=== PATIENT | female | born 1990 ===

== ENCOUNTER 2016-10-23 11:10 | Emergency (ER) | payer MEDICAID, OTHER ==
[2016-10-23 11:49] VITALS: BMI 31.1
[2016-10-23 13:10] LABS: SQUAMOUS EPITHIAL 5 /hpf (0-5); URINE BACTERIA RARE (<OCC); URINE BILIRUBIN NEGATIVE (NEGATIVE); URINE BLOOD NEGATIVE (NEGATIVE); URINE CLARITY CLOUDY (Clear); URINE COLOR YELLOW (YELLOW); URINE GLUCOSE (UA) NEG (Normal); URINE LEUKOCYTE ESTERASE LARGE Leu/uL (Negative); URINE NITRATE NEGATIVE (NEGATIVE); URINE PROTEIN 30 mg/dL (NEGATIVE); URINE UROBILINOGEN 0.2-1.0 mg/dL (0.2-1.0)
--- NOTE | 2016-10-23 14:45 | US ---
PROCEDURE: HISTORY: decreased movement COMPARISON: TECHNIQUE: FINDINGS: Single live intrauterine fetus with amniotic fluid index of 13.5 centimeters. Biophysical profile score of 8 out of 8. Estimated gestational age by LMP is 35 weeks and 4 days. Placenta anterior. IMPRESSION: As above.
== END 2016-10-23 16:45 | disposition home or self-care (01) ==
LOC: H.EROB2 11:10 → H.EROB 11:24 → H.EROB2 14:09
DX: O36.8131 Decreased fetal movements, third trimester, fetus 1 (principal); O47.03 False labor before 37 completed weeks of gestation, third trimester; Z3A.35 35 weeks gestation of pregnancy; O23.43 Unspecified infection of urinary tract in pregnancy, third trimester

== ENCOUNTER 2016-11-05 02:46 | Inpatient (IN) | payer OTHER ==
[2016-11-05 03:28] VITALS: BMI 31.6
[2016-11-05] MEDS: Lactated Ringer's 1,000 ML IV SCH (03:55)
[2016-11-05 03:59] LABS: BASO % 0.1 % (0.0-2.0); EOS # 0.1 K/uL (0.0-0.7); EOS % 0.4 % (0.0-4.0); HEMOGLOBIN 12.9 g/dL (12.0-16.0); LYMPH % 14.5 % (20.0-40.0); MEAN CELL VOLUME 89.6 fl (81.0-99.0); MEAN CORPUSCULAR HGB CONC 33.4 g/dL (33.0-37.0); MEAN PLATELET VOLUME 7.8 fl (7.2-11.7); MONO # 1.1 K/uL (0.0-0.8); MONO % 8.2 % (0.0-10.0); NEUT # 10.6 K/uL (1.8-7.0); NEUT % 76.8 % (50.0-75.0); NRBC % 0.1 % (0.0-0.0); RBC 4.32 Mil/uL (3.80-5.20); WHITE BLOOD COUNT 13.8 K/uL (4.8-10.8)
[2016-11-05] MEDS ORDERED: Oxytocin 30 units/LR 500ML 30 U/500 ML BAG IV ONE (04:08)
[2016-11-05] MEDS ORDERED: Oxycodone/Acetaminophen 5/325 mg Tab PO PRN (04:40)
[2016-11-05] MEDS ORDERED: Benzocaine/Menthol SPRAY TOP PRN (04:40)
[2016-11-05] MEDS ORDERED: Oxytocin 30 units/LR 500ML 30 U/500 ML BAG IV SCH (04:40)
--- NOTE | 2016-11-05 04:48 | OBADHP ---
Datetime: 11/05/2016 04:43 Admit Comment, IP Provider: 26 yo at37+2 wks in labor Vancomycin started for GBS prophylaxis FHT reassuring H_P dictated, "[id number]" Extremities - PN: Normal Abdomen - PN: Normal FHR - Baseline A Provider: 130 Vital Signs Provider: Reviewed IP Chief Complaint: Uterine contractions NICHD Variability Prov Fetus A: Moderate 6-25bpm NICHD Accel Fetus A IP Provider: 15X15 NICHD Decel Fetus A IP Provider: None Dilatation, Provider: 6-7 Effacement, Provider: 80 Station, Provider: -2 Genitourinary Exam: Normal EGA AdmitDate IP: 37.3 IP Adm Impression: Term, intrauterine IP Admit Plan: Initiate labor protocol Datetime: 10/23/2016 11:46 Pelvic Type - PN: Adequate Back - PN: Normal Lungs - PN: Normal Heart - PN: Normal Neurologic - PN: Normal HEENT - PN: Normal General - PN: Normal Presentation-Admit: Vertex Membranes, Provider: Intact Contraction Comments Provider: no Comments, ACOG Physical Exam: SSE: profuse yellow green curdlike d/c; no blood in vagina; no blood o n glove from pelvic exam Pool Provider: Negative
--- NOTE | 2016-11-05 04:53 | OBDS ---
MATERNAL INFORMATION Provider Comments: Pt progressed to complete and pushed to deliver a viable male through thin meconium at 04:25. Apgars 9 and 9. Wt 6.89, 2975 gms. placxed on mother's abdomen. Mouth and nares bulb-suctioned. Cord clamped and cut. Placenta delivered spontaneously intact w/ a 3vc a t 04:33. No tears noted. Pt and baby tolerated the procedure well. EBL: 150mL LABOR SUMMARY EDC: 11/23/2016 00:00 LABOR INFORMATION Onset of Labor: 11/05/2016 12:15 BABY A INFORMATION Infant Delivery Date/Time: 11/05/2016 04:25 SHOULDER DYSTOCIA BABY A Delivery Date/Time: 11/05/2016 04:25
--- NOTE | 2016-11-05 05:54 | HP ---
HISTORY OF PRESENT ILLNESS: This is a 26-year-old G6, P3-0-2-3 at 37 weeks and 2 days with an EDC of 11/24/2016 by LMP, who presents with very painful contractions that started around midnight. She denies leaking of fluids. She reports vaginal spotting. Reports positive movements. The patient received her care at [facility] with Dr. Palacios. The patient has a previous child with tricuspid regurgitation. She is allergic to penicillin. PAST MEDICAL HISTORY: The patient is healthy, reports that she is lactose- intolerant. PAST SURGICAL HISTORY: None. PAST OB HISTORY: In 2005, she had spontaneous . In 2006, she had spontaneous . In June 2007, she underwent a vaginal delivery of a male weighing 6 pounds 11 ounces. In March 2013, she underwent a vaginal delivery of a male weighing 7 pounds 2 ounces and in November 2015, she underwent vaginal delivery of a male weighing 6 pounds 13 ounces. [place] HISTORY: Menarche at 13, every 28 days. The patient denies any STDs or any abnormal Pap smears. MEDICATIONS: vitamins. ALLERGIES: PENICILLIN CAUSES RASH AND SHE IS ALSO ALLERGIC TO METFORMIN. FAMILY HISTORY: Her mother has fibromyalgia, mitral valve prolapse syndrome, anxiety, and depression. SOCIAL HISTORY: The patient denies tobacco, alcohol, and illicit drug use. LABORATORY DATA: Panorama low risk and male. Varicella zoster virus IgG is positive. Blood type is O+ and antibody screen negative. Pap was negative. GC and Chlamydia negative. HIV negative. Urine culture negative. RPR nonreactive. Hepatitis B surface antigen negative. Cystic fibrosis negative. Muscular dystrophy negative. Fragile X negative. AFP was negative. On 09/08/2016 HIV was negative. One-hour Glucola was 75 and RPR was nonreactive. On 10/27/2016 and 11/03/2016, GBS was positive. PHYSICAL EXAMINATION: GENERAL: The patient appears very uncomfortable. VITAL SIGNS: Afebrile. Stable. ABDOMEN: Soft, nontender, and gravid. EXTREMITIES: Nontender. heart tracing: Baseline is in the 130s with moderate variability and positive accelerations. Tocodynamometer: Contractions about every 2-3 minutes. ASSESSMENT AND PLAN: This is a 26-year-old 9-iiap-7-0-2-3 at 37 weeks and 2 days in active labor FHT reassuring. Group B Streptococcus positive. Vancomycin started for GBS prophylaxis. Ankit Pierce MD [facility]
[2016-11-06 07:40] LABS: HEMOGLOBIN 11.7 g/dL (12.0-16.0); MEAN CELL VOLUME 90.3 fl (81.0-99.0); MEAN CORPUSCULAR HGB CONC 33.2 g/dL (33.0-37.0); RBC 3.89 Mil/uL (3.80-5.20); RED CELL DISTRIBUTION WIDTH 13.7 % (11.5-14.5); WHITE BLOOD COUNT 12.2 K/uL (4.8-10.8)
--- NOTE | 2016-11-06 07:52 | OBPPN ---
Datetime: 11/06/2016 07:47 PP Pain Prov: Within normal limits PP Abdomen/Uterus Prov: Normal PP Lochia Prov: Normal PP Extremities Prov: Normal PP Progress Prov: Normal PP Impression Prov: Normal progression PP Plan Prov: Continue present management PP Progress Note Prov: PPD 1 s/p , doing well, breast feeding Continue current management Vital Signs Provider PP: Reviewed; Within Normal Limits
--- NOTE | 2016-11-07 10:12 | OBPPN ---
Datetime: 11/07/2016 10:10 PP Pain Prov: Within normal limits PP Nausea Prov: Denies PP Flatus Prov: Yes PP BM Prov: Yes PP Breasts Prov: Normal PP Heart Prov: Normal PP Lungs Prov: Normal PP Abdomen/Uterus Prov: Normal PP Lochia Prov: Normal PP Vulva/Perineum Prov: Normal PP CVA Tenderness Prov: Normal PP Extremities Prov: Normal PP Impression Prov: Normal progression PP Plan Prov: Discharge PP Progress Note Prov: day #2 status post normal spontaneous vaginal delivery- patient re covering well Discharge home today with instructions Patient will follow up in office in 6 weeks Discussed plan with patient and all patient questions answered. IP PP Procedures: None Vital Signs Provider PP: Reviewed; Within Normal Limits
--- NOTE | 2016-11-07 10:12 | OBDCSUM ---
Datetime: 11/07/2016 10:11 Discharged to, Provider: Home Follow up at, Provider: Suzanne Disch Instr Activity: Normal activity Disch Instr Diet: Regular Discharge Instructions, Provider: Routine instructions given Discharge Diagnosis, Provider: Term Delivered Discharge Time: 11/07/2016 10:11 Follow up in weeks, Provider: 6 weeks Disch Referrals: None Contraception discussed, Prov: Yes
[2016-11-07] MEDS: Lactated Ringer's 1,000 ML IV SCH (11:52)
[2016-11-07 21:30] VITALS: BP 110/80; PULSE 55; RESP 18; TEMP 99.1; O2SAT 99
== END 2016-11-07 15:36 | disposition home or self-care (01) | DRG 372 ==
LOC: H.EROB2 02:46 → H.L&D 03:26 → H.OB/GYN 10:53
PROVIDERS: ADMIT Obstetrics & Gynecology; ATTEND Obstetrics & Gynecology
PROC: 10E0XZZ Delivery of Products of Conception, External Approach (ICD-10-PCS; principal; 2016-11-05)
PROC: 4A1HXCZ Monitoring of Products of Conception, Cardiac Rate, External Approach (ICD-10-PCS; 2016-11-05)
DX: O77.0 Labor and delivery complicated by meconium in amniotic fluid (principal); O98.52 Other viral diseases complicating childbirth; B02.9 Zoster without complications; Z37.0 Single live birth; O99.824 Streptococcus B carrier state complicating childbirth; Z3A.37 37 weeks gestation of pregnancy; Z81.8 Family history of other mental and behavioral disorders; Z88.0 Allergy status to penicillin